=== PATIENT | female | born 2000 | race African-American/Black ===

== ENCOUNTER 2022-01-11 09:11 | Emergency (ER) | payer OTHER, SELFPAY ==
[2022-01-11 09:22] VITALS: BP 122/58; PULSE 82; RESP 18; TEMP 36.9; O2SAT 100
--- NOTE | 2022-01-11 09:47 | ED.URI ---
HPI - URI/Sore Throat General Chief Complaint: Upper Respiratory Infection Stated Complaint: Voice Gone/Cough Time Seen by Provider: 01/11/22 09:50 Source: patient and RN notes reviewed Mode of arrival: ambulatory Limitations: no limitations History of Present Illness HPI Narrative: 21-year-old female presents concern for hoarse voice that started on Sunday. She denies sore throat, nasal congestion, rhinorrhea, headache, nausea, vomiting, cough. Reports she is concerned for strep. Reports she has weekly Covid test, her Covid test this week is negative. MD elicited complaint: other (Hoarse voice) Related Data Home Medications Medication Instructions Recorded Confirmed Embrel 01/11/22 folic acid 1 mg PO DAILY 01/11/22 01/11/22 methotrexate 01/11/22 Allergies Allergy/AdvReac Type Severity Reaction Status Date / Time No Known Allergies Allergy Verified 01/11/22 09:44 Review of Systems Review of Systems: CONSTITUTIONAL: Denies malaise, chills, sweats, or fever. EYES: Denies visual changes, redness, or discharge. ENT: Denies rhinorrhea, congestion, sinus pain, otalgia and sore throat. Reports hoarse voice CARDIOVASCULAR: Denies chest pain, palpitations, or edema. RESPIRATORY: Denies cough. Denies dyspnea. GASTROINTESTINAL: Denies abdominal pain, nausea, vomiting, diarrhea SKIN: Denies rash or itching. MUSCULOSKELETAL: Denies myalgia. NEUROLOGIC: Denies headache. All systems reviewed & are unremarkable except as noted in HPI and below PMFSH Comments At time of signature, agree with nursing past medical, surgical, social and family history. There is no relevant family history pertinent to the presenting complaint Exam Narrative: GENERAL: Well-appearing, well-nourished, and in no acute distress. HEAD: Normocephalic EYES: PERRLA, conjunctivae clear ENT: Nares clear, no discharge. Mucous membranes moist. TM pearly diaz with sharp light reflex bilaterally; no tragal tenderness. Oropharynx not erythematous without lesions. Tonsils not enlarged and without exudate, no drooling, no trismus, uvula midline. Hoarse voice noted NECK: Supple. No lymphadenopathy CHEST: Clear to auscultation, breath sounds equal. No wheezing, rhonchi, rales, or stridor. No respiratory distress, speaks in full sentences. HEART: Regular rate and rhythm. No murmur heard. SKIN: Warm, dry, no rash. NEURO: Alert and oriented x3. PSYCH: Normal mood and affect Course Course Emergency Course: Patient is aware of diagnosis, understands and agrees to treatment plan. Anticipatory guidance given. Patient agrees to follow-up as directed and is aware of reasons to seek care at the emergency department. Portions of this record may have been created with voice recognition software Level of Care: Express Care Visit Vital Signs Vital signs: Vital Signs Temperature 98.5 F 01/11/22 09:22 Pulse Rate 82 01/11/22 09:22 Respiratory Rate 18 01/11/22 09:22 Blood Pressure 122/58 L 01/11/22 09:22 Pulse Oximetry 100 01/11/22 09:22 Temperature 98.5 F 01/11/22 09:22 Pulse Rate 82 01/11/22 09:22 Respiratory Rate 18 01/11/22 09:22 Blood Pressure 122/58 L 01/11/22 09:22 Pulse Oximetry 100 01/11/22 09:22 Reviewed. MDM - URI/Sore Throat MDM Narrative Medical decision making narrative: Differential diagnosis considered: Delgado virus, strep pharyngitis, allergic rhinitis, upper respiratory tract infection, sinusitis, rhinosinusitis, nasopharyngitis. viral pharyngitis, otitis media, otitis externa, pneumonia, bronchitis, viral cough syndrome, viral syndrome, and influenza. Exam findings show no acute concerns or changes; patient is non-toxic appearing and is in no distress. Patient is appropriate for outpatient treatment and follow-up. Lab Data Attestation: I reviewed the patient's lab results. Critical Care Time Critical Care Time Critical Care Time: No Discharge Plan Discharge Clinical Impression: Hoarseness of voice Patie
== END 2022-01-11 10:08 | disposition home or self-care (01) ==
PROVIDERS: Emergency Provider Nurse Practitioner; PCP Pediatrics
DX: R49.0 Dysphonia (principal)
CPT/HCPCS: 87081; 87880; 99213; G0463